=== PATIENT | male | born 1990 | race American Indian/Alaskan Native ===

== ENCOUNTER 2018-02-16 15:46 | Emergency (ER) | payer OTHER ==
[2018-02-16 16:25] VITALS: BP 145/82
[2018-02-16 16:45] LABS: Basophils % (Auto) 0.4 % (0.0-1.8); Eosinophils # (Auto) 0.2 K/mm3 (0.0-0.4); Hematocrit 43.5 % (35.5-45.6); Hemoglobin 14.7 gm/dl (11.8-15.2); Lymphocytes # (Auto) 1.9 K/mm3 (1.2-5.4); Lymphocytes % (Auto) 15.6 % (13.4-35.0); Mean Corpuscular HGB Conc 34 % (32-34); Mean Corpuscular Hemoglobin 31 pg (28-32); Mean Corpuscular Volume 93 fl (84-94); Monocytes # (Auto) 0.9 K/mm3 (0.0-0.8); Monocytes % (Auto) 7.9 % (0.0-7.3); Platelet Count 249 K/mm3 (140-440); Red Blood Count 4.68 M/mm3 (3.65-5.03); Red Cell Distribution Width 12.8 % (13.2-15.2)
[2018-02-16 17:03] LABS: Alanine Aminotransferase 21 units/L (7-56); Albumin 4.3 g/dL (3.9-5); BUN/Creatinine Ratio 9; Blood Urea Nitrogen 8 mg/dL (9-20); Calcium 9.2 mg/dL (8.4-10.2); Hemolysis Index 5
[2018-02-16 17:42] LABS: Bilirubin,Urine NEG (Negative); Blood,Urine NEG (Negative); Color,Urine Yellow (Yellow); Mucus,Urine 2+ /HPF; Protein,Urine <15 mg/dL mg/dL (Negative); Urobilinogen,Urine < 2.0 mg/dL (<2.0)
--- NOTE | 2018-02-16 19:07 | Emergency Department Report ---
ED General Adult HPI - General Chief complaint: Abdominal Pain Stated complaint: STOMACH ACHE Time Seen by Provider: 02/16/18 18:58 Source: patient Mode of arrival: Ambulatory Limitations: No Limitations - History of Present Illness Initial comments: Patient presents to the emergency department with a chief complaint of lower abdominal pain that has been present for the last week. Patient denies a today' s making the symptoms better or worse and describes the pain as dull in nature. Does state that he has some difficulty in urination -: Gradual Location: abdomen Radiation: non-radiation Severity scale (0 -10): 2 Quality: dull Consistency: constant Improves with: none Worsens with: other (with urination) Associated Symptoms: denies other symptoms Treatments Prior to Arrival: none - Related Data Previous Rx's Medication Instructions Recorded Last Taken Type Sulfamethoxazole/Trimethoprim 1 each PO BID #14 tablet 02/16/18 Unknown Rx [Bactrim DS TAB] Allergies Allergy/AdvReac Type Severity Reaction Status Date / Time No Known Allergies Allergy Unverified 02/16/18 16:24 ED Review of Systems ROS: Stated complaint: STOMACH ACHE Other details as noted in HPI Constitutional: denies: chills, fever Eyes: denies: eye pain, eye discharge, vision change ENT: denies: ear pain, throat pain Respiratory: denies: cough, shortness of breath, wheezing Cardiovascular: denies: chest pain, palpitations Endocrine: no symptoms reported Gastrointestinal: abdominal pain. denies: nausea, diarrhea Genitourinary: denies: urgency, dysuria Musculoskeletal: denies: back pain, joint swelling, arthralgia Skin: denies: rash, lesions Neurological: denies: headache, weakness, paresthesias Psychiatric: denies: anxiety, depression Hematological/Lymphatic: denies: easy bleeding, easy bruising ED Past Medical Hx - Past Medical History Previous Medical History?: No - Social History Smoking Status: Never Smoker - Medications Home Medications: Home Medications Medication Instructions Recorded Confirmed Last Taken Type Sulfamethoxazole/Trimethoprim 1 each PO BID #14 tablet 02/16/18 Unknown Rx [Bactrim DS TAB] ED Physical Exam - General Limitations: No Limitations General appearance: alert, in no apparent distress - Head Head exam: Present: atraumatic, normocephalic - Eye Eye exam: Present: normal appearance, PERRL, EOMI - ENT ENT exam: Present: mucous membranes moist - Neck Neck exam: Present: normal inspection - Respiratory Respiratory exam: Present: normal lung sounds bilaterally. Absent: respiratory distress, wheezes, rales - Cardiovascular Cardiovascular Exam: Present: regular rate, normal rhythm. Absent: systolic murmur, diastolic murmur, rubs, gallop - GI/Abdominal GI/Abdominal exam: Present: soft, tenderness, normal bowel sounds, other (tt palpation suprapubic region there is no tenderness to palpation or right upper quadrant or right lower quadrant. Epigastric areas without tenderness as well) . Absent: distended - Rectal Rectal exam: Present: deferred - Extremities Exam Extremities exam: Present: normal inspection - Back Exam Back exam: Present: normal inspection - Neurological Exam Neurological exam: Present: alert, oriented X3 - Psychiatric Psychiatric exam: Present: normal affect, normal mood - Skin Skin exam: Present: warm, dry, intact, normal color. Absent: rash ED Course Vital Signs 02/16/18 16:21 Temperature 98.8 F Pulse Rate 88 Respiratory 16 Rate Blood Pressure 145/82 O2 Sat by Pulse 97 Oximetry ED Medical Decision Making - Lab Data Result diagrams: 02/16/18 16:32 02/16/18 16:32 - Medical Decision Making Discussed results with patient Discussed further workup but patient politely declined Critical care attestation.: If time is entered above; I have spent that time in minutes in the direct care of this critically ill patient, excluding procedure time. ED Disposition Clinical Impression: UTI (urinary tract infection) Disposition: - TO HOME OR SELFCARE Is pt being admited?: No Does the pt Need Aspirin: No Condition: Fair Instructions: Urinary Tract Infection in Men (ED) Prescriptions: Sulfamethoxazole/Trimethoprim [Bactrim DS TAB] 1 each PO BID #14 tablet Referrals: PRIMARY CARE, [Primary Care Provider] - 3-5 Days LUBA BOWSER MD [Staff Physician] - 3-5 Days [facility] [Outside] - 3-5 Days Time of Disposition: 19:06
== END 2018-02-16 19:33 | disposition home or self-care (01) ==
LOC: ED 15:46
DX: N39.0 Urinary tract infection, site not specified (principal)
CPT/HCPCS: 36415; 80053; 81001; 85025; 99283

== ENCOUNTER 2018-12-18 04:01 | Emergency (ER) | payer MEDICARE ==
--- NOTE | 2018-12-18 07:09 | Emergency Department Report ---
HPI - General Chief Complaint: Sore Throat Time Seen by Provider: 12/18/18 06:55 - HPI HPI: 28-year-old -[place] male presents to the emergency department with a complaint of a one to 2 day history of a sore throat. He denies any fever. He says that he has an occasional cough but denies any chest pain, shortness of breath. He has not taken anything for his symptoms prior to presentation. Denies any past medical history. No recent travel or sick contacts at home. He does not have a primary care physician. He has some pain with swallowing but is able to do so. ED Past Medical Hx - Past Medical History Previous Medical History?: No - Surgical History Past Surgical History?: No - Social History Smoking Status: Former Smoker Substance Use Type: None - Medications Home Medications: Home Medications Medication Instructions Recorded Confirmed Last Taken Type Sulfamethoxazole/Trimethoprim 1 each PO BID #14 tablet 02/16/18 Unknown Rx [Bactrim DS TAB] Loratadine [Claritin] 10 mg PO DAILY #10 tablet 12/18/18 Unknown Rx ED Review of Systems ROS: Stated complaint: SORE THROAT Other details as noted in HPI Constitutional: denies: chills, fever Eyes: denies: eye pain, eye discharge ENT: throat pain. denies: ear pain Respiratory: cough. denies: shortness of breath Cardiovascular: denies: chest pain, palpitations Gastrointestinal: denies: abdominal pain, vomiting Genitourinary: denies: urgency, dysuria Musculoskeletal: denies: back pain, myalgia Skin: denies: rash, lesions Neurological: denies: headache, weakness Physical Exam - Physical Exam Vital Signs: Vital Signs 12/18/18 04:13 Temperature 99.1 F Pulse Rate 85 Respiratory 18 Rate Blood Pressure 149/94 O2 Sat by Pulse 96 Oximetry Physical Exam: GENERAL: The patient is well-developed well-nourished. HENT: Normocephalic. Atraumatic. Patient has moist mucous membranes. Mild bilateral tonsillar hypertrophy. No significant erythema and no exudates seen. No drooling or trismus. EYES: Extraocular motions are intact. NECK: Supple. Trachea is midline. CHEST/LUNGS: Clear to auscultation. There is no respiratory distress noted. HEART/CARDIOVASCULAR: Regular. There is no tachycardia. There is no murmur. ABDOMEN: There is no abdominal distention. SKIN: Skin is warm and dry. NEURO: The patient is awake, alert, and oriented. The patient is cooperative. The patient has no focal neurologic deficits. The patient has normal speech. MUSCULOSKELETAL: There is no tenderness or deformity. There is no evidence of acute injury. ED Course Vital Signs 12/18/18 04:13 Temperature 99.1 F Pulse Rate 85 Respiratory 18 Rate Blood Pressure 149/94 O2 Sat by Pulse 96 Oximetry ED Medical Decision Making - Medical Decision Making This patient presents with a one to 2 day history of some sore throat. There is no drooling or trismus. He has some mild tonsillar hypertrophy. No si gnificant erythema or exudates. He appears to have a normal voice. Vital signs stable throughout his ED course. He was negative on rapid strep test. He also complains of some mild congestion and occasional cough. No signs of any respiratory distress. Heart and lungs are normal to auscultation. This all appears most consistent with a viral syndrome or viral pharyngitis. Patient placed on some Claritin and has been given referrals for primary care. He will return to the ER with any worsening of his symptoms with any acute distress. - Differential Diagnosis strep pharyngitis, viral pharyngitis, mononucleosis Critical Care Time: No Critical care attestation.: If time is entered above; I have spent that time in minutes in the direct care of this critically ill patient, excluding procedure time. ED Disposition Clinical Impression: Viral pharyngitis Disposition: DC-01 TO HOME OR SELFCARE Is pt being admited?: No Condition: Stable Instructions: Pharyngitis (ED) Additional Instructions: Please follow up with a primary care physician in the next few days. Return to the emergency Department with any worsening of your symptoms, inability to swallow, development of a high fever, change in your voice, or with any acute distress. Prescriptions: Loratadine [Claritin] 10 mg PO DAILY #10 tablet Referrals: MARY WOODS MD [Staff Physician] - 2-3 Days [facility] [Outside] - 2-3 Days Time of Disposition: 07:04
[2018-12-18 07:49] VITALS: BP 141/90
== END 2018-12-18 07:48 | disposition home or self-care (01) ==
LOC: ED 04:01
DX: J02.8 Acute pharyngitis due to other specified organisms (principal); Z87.891 Personal history of nicotine dependence
CPT/HCPCS: 87116; 87430; 99283

== ENCOUNTER 2020-06-27 06:58 | Emergency (ER) | payer MEDICARE ==
[2020-06-27 07:21] VITALS: BP 142/96
[2020-06-27] MEDS ORDERED: LIDOCAINE-MPF (1%) 10 MG/1 ML VIAL 5 ML ONE (08:11)
[2020-06-27] MEDS ORDERED: LIDOCAINE-MPF (1%) 10 MG/1 ML VIAL 5 ML INFILTRATI ONE (08:12)
[2020-06-27] MEDS ORDERED: DIPHtheria,PERTUSSIS(ACELL),TETANUS VACCINE/PF 0.5 ML VIAL IM ONE (08:41)
[2020-06-27] MEDS ORDERED: IBUPROFEN 600 MG TAB PO ONE (08:42)
--- NOTE | 2020-06-27 08:47 | Emergency Department Report ---
- General Chief complaint: Upper Respiratory Infection Stated complaint: INDEX FINGER LEFT HAND SWOLLEN Source: patient Mode of arrival: Ambulatory Limitations: No Limitations - History of Present Illness Initial comments: The patient was evaluated in the emergency department for symptoms described in the history of present illness. He/she was evaluated in the context of the global COVID-19 pandemic, which necessitated consideration that the patient might be at risk for infection with the virus that causes COVID-19. Institutional protocols and algorithms that pertain to the evaluation of patients at risk for COVID-19 are in a state of rapid change based on information released by regulatory bodies including the CDC and federal and state organizations. These policies and algorithms were followed during the patient's care in the emergency department. Please note that these policies, procedures and recommendations changed on a rapid basis. 30-year-old -[place]ammar[place] male presents to the emergency room complaining of left middle finger swollen and pain noticed yesterday. Patient denies any known injury. Patient does admit to biting his cuticles. Patient reports he does not know when the last time he had a tetanus shot. Denies any past medical history currently takes no medications on a daily basis and has no known drug allergies. Onset/Timin -: days(s) Tetanus Up to Date: no [place] [facility] [place] (0 -10): 4 Quality: aching, sharp Consistency: intermittent Improves with: none Worsens with: palpation Associated symptoms: denies other symptoms Treatments Prior to Arrival: none - Related Data Previous Rx's Medication Instructions Recorded Last Taken Type Sulfamethoxazole/Trimethoprim 1 each PO BID #14 tablet 02/16/18 Unknown Rx [Bactrim DS TAB] Loratadine (Nf) [Claritin] 10 mg PO DAILY #10 tablet 12/18/18 Unknown Rx Ibuprofen [Motrin 600 MG tab] 600 mg PO Q8H PRN #21 tablet 06/27/20 Unknown Rx cephALEXin [Keflex] 500 mg PO Q12HR 7 Days #14 cap 06/27/20 Unknown Rx Allergies Allergy/AdvReac Type Severity Reaction Status Date / Time No Known Allergies Allergy Verified 06/27/20 07:14 Abscess Boil HPI - HPI Chief Complaint: Upper Respiratory Infection Stated Complaint: INDEX FINGER LEFT HAND SWOLLEN Home Medications: Previous Rx's Medication Instructions Recorded Last Taken Type Sulfamethoxazole/Trimethoprim 1 each PO BID #14 tablet 02/16/18 Unknown Rx [Bactrim DS TAB] Loratadine (Nf) [Claritin] 10 mg PO DAILY #10 tablet 12/18/18 Unknown Rx Ibuprofen [Motrin 600 MG tab] 600 mg PO Q8H PRN #21 tablet 06/27/20 Unknown Rx cephALEXin [Keflex] 500 mg PO Q12HR 7 Days #14 cap 06/27/20 Unknown Rx Allergies/Adverse Reactions: Allergies Allergy/AdvReac Type Severity Reaction Status Date / Time No Known Allergies Allergy Verified 06/27/20 07:14 ED Review of Systems ROS: Stated complaint: INDEX FINGER LEFT HAND SWOLLEN Other details as noted in HPI Comment: All other systems reviewed and negative ED Past Medical Hx - Past Medical History Previous Medical History?: No - Social History Smoking Status: Never Smoker Substance Use Type: None - Medications Home Medications: Home Medications Medication Instructions Recorded Confirmed Last Taken Type Sulfamethoxazole/Trimethoprim 1 each PO BID #14 tablet 02/16/18 Unknown Rx [Bactrim DS TAB] Loratadine (Nf) [Claritin] 10 mg PO DAILY #10 tablet 12/18/18 Unknown Rx Ibuprofen [Motrin 600 MG tab] 600 mg PO Q8H PRN #21 tablet 06/27/20 Unknown Rx cephALEXin [Keflex] 500 mg PO Q12HR 7 Days #14 cap 06/27/20 Unknown Rx ED Physical Exam - General Limitations: No Limitations General appearance: alert, in no apparent distress - Head Head exam: Present: atraumatic, normocephalic - Eye Eye exam: Present: normal appearance - ENT ENT exam: Present: mucous membranes moist - Neck Neck exam: Present: normal inspection, full ROM - Respiratory Respiratory exam: Absent: accessory muscle use - Neurological Exam Neurological exam: Present: alert, oriented X3 - Psychiatric Psychiatric exam: Present: normal affect, normal mood - Expanded Skin Exam Expanded Distribution of rash: LUE (Left knee middle finger distal) Description of rash: Present: tenderness, erythematous, swelling, fluctuant ED Course Vital Signs 06/27/20 07:16 Temperature 98.3 F Pulse Rate 72 Respiratory 18 Rate Blood Pressure 142/96 O2 Sat by Pulse 95 Oximetry ED Medical Decision Making - Medical Decision Making 30-year-old -[place] male presents to the emergency room complaining of left middle finger swollen and pain noticed yesterday. Patient denies any known injury. Patient does admit to biting his cuticles. Patient reports he does not know when the last time he had a tetanus shot. Denies any past medical history currently takes no medications on a daily basis and has no known drug allergies. Patient appears to have a paronychia incision and drain was performed. Patient be placed on Keflex ibuprofen. Patient was given tetanus and ibuprofen in fast track. Critical care attestation.: If time is entered above; I have spent that time in minutes in the direct care of this critically ill patient, excluding procedure time. ED Disposition Clinical Impression: Paronychia Disposition: DC-01 TO HOME OR SELFCARE Is pt being admited?: No Does the pt Need Aspirin: No Condition: Stable Instructions: Paronychia, [id number] Additional Instructions: Complete antibiotics as prescribed pain medication as needed keep wound clean and dry. Prescriptions: cephALEXin [Keflex] 500 mg PO Q12HR 7 Days #14 cap Ibuprofen [Motrin 600 MG tab] 600 mg PO Q8H PRN #21 tablet PRN Reason: Pain Referrals: PRIMARY CARE,MD [Primary Care Provider] - 3-5 Days Forms: Work/School Release Form(ED)
== END 2020-06-27 09:05 | disposition home or self-care (01) ==
LOC: ED 06:58
DX: L03.012 Cellulitis of left finger (principal); Z79.1 Long term (current) use of non-steroidal anti-inflammatories (NSAID); Z79.899 Other long term (current) drug therapy
CPT/HCPCS: 90471; 90715; 99282

== ENCOUNTER 2020-10-08 05:55 | Emergency (ER) | payer BC, MEDICARE ==
[2020-10-08 06:07] VITALS: BP 139/94
--- NOTE | 2020-10-08 07:04 | XRay Report ---
XR shoulder 2+V LT INDICATION / CLINICAL INFORMATION: shoulder pain. COMPARISON: None available. FINDINGS: No acute fracture. Normal alignment. Joint spaces are preserved. No destructive osseous lesion or s uspicious periosteal reaction. Impression: 1.No acute fracture. Signer Name: Rodo Zarate MD Signed: 10/08/2020 6:59 AM Workstation Name: [id number]
--- NOTE | 2020-10-08 07:33 | Emergency Department Report ---
Upper Extremity - HPI Chief Complaint: Extremity Injury, Upper Stated Complaint: LT SHOULDER PAIN Time Seen by Provider: 10/08/20 07:27 Upper Extremity: Left Shoulder Occurred When: >5 Days Mechanism: Other Severity: mild Symptoms: No Pain with Movement, No Deformity, No Limited Range of Movement, No Numbness, No Weakness, No Swelling, No Bruising/Ecchymosis, No Laceration or Abrasion Other History: Patient is a 30-year-old male that comes to the emergency room because his shoulder hurts. 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 He is right-handed. He denies any fall or injury. He is neuromuscularly intact. He is asking for work accommodation. ED Review of Systems ROS: Stated complaint: LT SHOULDER PAIN Other details as noted in HPI Comment: All other systems reviewed and negative ED Past Medical Hx - Past Medical History Previous Medical History?: No - Surgical History Past Surgical History?: No - Family History Family history: no significant - Social History Smoking Status: Never Smoker Substance Use Type: None - Medications Home Medications: Home Medications Medication Instructions Recorded Confirmed Last Taken Type Sulfamethoxazole/Trimethoprim 1 each PO BID #14 tablet 02/16/18 Unknown Rx [Bactrim DS TAB] Loratadine (Nf) [Claritin] 10 mg PO DAILY #10 tablet 12/18/18 Unknown Rx Ibuprofen [Motrin 600 MG tab] 600 mg PO Q8H PRN #21 tablet 06/27/20 Unknown Rx cephALEXin [Keflex] 500 mg PO Q12HR 7 Days #14 cap 06/27/20 Unknown Rx Upper Extremity Exam - Exam General: Vital signs noted. No distress. Alert and acting appropriately. Head and Torso: No HEENT Abnormality, No Neck Tenderness, No Chest/Lungs Abnormality, No Abdominal Tenderness, No Back Tenderness Shoulder Exam: Yes Normal Range of Motion in Shoulder, No Shoulder Tenderness, No Clavicle Tenderness, No Shoulder Deformity, No AC Joint Tenderness Arm Exam: No Arm/Humerus Tenderness, No Arm Deformity Elbow: No Elbow Tenderness, No Normal Range of Motion in Elbow, No Elbow Deformity Forearm: No Forearm Tenderness, No Forearm Deformity, No Pain with Pronation, No Pain with Supination Wrist: Yes Normal ROM in Wrist, No Wrist Tenderness, No Wrist Deformity, No Snuffbox Tenderness, No Pain with Axial Thumb Compression Hand: Yes Normal ROM in Digit(s), No Hand Tenderness, No Hand Deformity, No Digit Tenderness, No Digit(s) Deformity, No Tendon Dysfunction CMS Exam: No Broken Skin, No Normal Distal Pulses, No Normal Capillary Refill, No Normal Distal Sensation ED Course Vital Signs 10/08/20 06:04 Temperature 97.8 F Pulse Rate 73 Respiratory 16 Rate Blood Pressure 139/94 O2 Sat by Pulse 97 Oximetry ED Medical Decision Making - Radiology Data Radiology results: report reviewed, image reviewed - Medical Decision Making X-ray as ordered by the overnight provider is normal. Patient has full range of motion is neurovascularly intact. I have told him we cannot give him work accommodation. We have discussed stretching and exercises to strengthen his arm. Patient discharged home with discharge plan of care including NSAIDs, icing his arm after work and following up with primary care. Patient verbalizes understanding of this plan Vital Signs 10/08/20 06:04 Temperature 97.8 F Pulse Rate 73 Respiratory 16 Rate Blood Pressure 139/94 O2 Sat by Pulse 97 Oximetry - Differential Diagnosis Soft tissue injury Critical care attestation.: If time is entered above; I have spent that time in minutes in the direct care of this critically ill patient, excluding procedure time. ED Disposition Clinical Impression: Muscle strain of left upper arm Disposition: DC-01 TO HOME OR SELFCARE Is pt being admited?: No Does the pt Need Aspirin: No Condition: Stable Instructions: Muscle Strain, [id number] Additional Instructions: ice shoulder after work motrin over the counter 800 mg every 8 hours if needed for pain follow up with pcp referral below Referrals: LEE FORD MD [Staff Physician] - 3-5 Days Forms: Work/School Release Form(ED) Time of Disposition: 07:32
== END 2020-10-08 07:45 | disposition home or self-care (01) ==
LOC: ED 05:55
DX: S46.912A Strain of unspecified muscle, fascia and tendon at shoulder and upper arm level, left arm, initial encounter (principal); Z79.899 Other long term (current) drug therapy; X50.9XXA Other and unspecified overexertion or strenuous movements or postures, initial encounter; Y93.89 Activity, other specified; Y92.89 Other specified places as the place of occurrence of the external cause; Y99.8 Other external cause status
CPT/HCPCS: 99283